=== PATIENT | male | born 2000 | race Caucasian/White ===

== ENCOUNTER 2019-01-20 15:08 | Observation (INO) | payer BC ==
[2019-01-20] MEDS ORDERED: LIDOCAINE 1% 20 ML MDV ONE (16:21)
--- NOTE | 2019-01-20 16:53 | RAD REPORT ---
EXAM DESCRIPTION: RAD -Hand Left 3 View - 01/20/2019 4:35 pm CLINICAL HISTORY: Left hand pain status post injury FINDINGS: No fracture or dislocation is seen. 4 millimeter radiopaque foreign body within the third web space between the third and fourth proximal phalanges
--- NOTE | 2019-01-20 18:08 | RAD REPORT ---
EXAM DESCRIPTION: RAD -Hand Left 3 View - 01/20/2019 5:53 pm CLINICAL HISTORY: Left hand pain status post injury FINDINGS: No fracture or dislocation is seen. Radiopaque foreign body persists within the third webspace between the third and fourth proximal phal anges
--- NOTE | 2019-01-20 18:25 | P.HP ---
Certification for Inpatient Patient admitted to: Observation With expected LOS: <2 Midnights Patient will require the following post-hospital care: None Practitioner: I am a practitioner with admitting privileges, knowledge of patient current condition, hospital course, and medical plan of care. Services: Services provided to patient in accordance with Admission requirements found in Title 42 Section 412.3 of the Code of Federal Regulations Patient History Date of Service: 01/20/19 Primary Care Provider: Dr. Bashir Reason for admission: Laceration to the left hand History of Present Illness: 18-year-old male presented to emergency room after he fell and lacerated his left hand. Patient was fishing. He fell in the water and landed on shellreef. Suffered 2 lacerations to the web of his hand. He did not have any severe pain, fever or chills noted. He went home but decided to come into the hospital to get further evaluated. In the ER he was evaluated. Patient was assessed. Lacerations were irrigated and debrided. X-rays showed a foreign body to the left webspace between the 3rd and 4th proximal phalanges. Plastic surgery was called. Plastic surgery recommended to keep the patient Overnite for debridement of foreign body tomorrow. I was asked to admit the patient. When I saw the patient ER, he appeared comfortable. Patient had been given medication for pain. 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 - Family History Family History: Reviewed- Non-Contributory - Social History Smoking Status: Unknown if ever smoked Alcohol use: No CD- Drugs: No Caffeine use: Yes Place of Residence: Home Review of Systems General: As per HPI Eyes: Unremarkable ENT: Unremarkable Respiratory: Unremarkable Cardiovascular: Unremarkable Gastrointestinal: Unremarkable Genitourinary: Unremarkable Musculoskeletal: As per HPI Integumentary: As per HPI Neurological: Unremarkable Lymphatics: Unremarkable Physical Examination - Physical Exam General: Alert, In no apparent distress, Oriented x3, Cooperative HEENT: Atraumatic, Normocephalic, PERRLA, Mucous membr. moist/pink Neck: Supple, No Thyromegaly Respiratory: Clear to auscultation bilaterally, Normal air movement Cardiovascular: Normal pulses, Regular rate/rhythm Gastrointestinal: Normal bowel sounds, Soft and benign, Non-distended, No tenderness, No masses, No rebound, No guarding Integumentary: Other (Left hand evaluated. 2 lacerations identified. 1 near the web space of the 3rd and 4th proximal phalanx. The other near the base of the palm. Mild edema noted. Patient reports some extension to the hand) Neurological: Normal speech, Normal strength at 5/5 x4 extr, Normal tone, Normal affect Assessment and Plan - Plan Impression: Fall leading to lacerations and foreign body to the webspace of the 3rd and 4th proximal phalanx Plan: Patient will be admitted in preparation for irrigation, debridement and removal of foreign body by plastic surgery tomorrow. Patient patient is low risk for complication. IV antibiotic therapy initiated to cover for broad-spectrum bacteria. Possible discharge tomorrow after surgery. 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 He will likely require work restrictions. This can be it further addressed by plastic surgery. I will turn the service over to Dr. Becerra tomorrow. I will go over the plan of care with her. Discharge Plan: Home Plan to discharge in: 24 Hours - Advance Directives Does patient have a Living Will: No Does patient have a Durable POA for Healthcare: No - Code Status/Comfort Care Code Status Assessed: Yes (Patient full code.) Time Spent Managing Pts Care (In Minutes): 55
--- NOTE | 2019-01-20 18:26 | ER ---
Nurse's Notes [facility] Name: Rayray Gomez Age: 18 yrs Sex: Male : 2000 Arrival Date: 01/20/2019 Time: 15:10 Bed 24 Private MD: Diagnosis: Laceration with foreign body of left hand Presentation: 01/20 15:39 Presenting complaint: Patient states: Laceration to the Left irby aspect on oysters sg in the mud while fishing, pt reports he was able to get it cleaned out and dressed at home, bleeding controlled at this time, concerned about nerve/muscle damage. pt able to move all fingers at this time, reports pain at this time. Transition of care: patient was not received from another setting of care. Complicating Factors: There are no complicating factors for this patient. Onset of symptoms was January 20, 2019. Risk Assessment: Do you want to hurt yourself or someone else? Patient reports no desire to harm self or others. Initial Sepsis Screen: Does the patient meet any 2 criteria? No. Patient's initial sepsis screen is negative. Does the patient have a suspected source of infection? No. Patient's initial sepsis screen is negative. Care prior to arrival: None. 15:39 Method Of Arrival: Ambulatory sg 15:39 Acuity: WALLY 4 sg Historical: - Allergies: 15:41 No Known Allergies; sg - Home Meds: 15:41 None [Active]; sg - PMHx: 15:41 None; sg - PSHx: 15:41 None; sg - Immunization history:: Adult Immunizations up to date. - Social history:: Smoking status: Patient/guardian denies using tobacco. - Ebola Screening: : Patient negative for fever greater than or equal to 101.5 degrees Fahrenheit, and additional compatible Ebola Virus Disease symptoms Patient denies exposure to infectious person Patient denies travel to an Ebola-affected area in the 21 days before illness onset No symptoms or risks identified at this time. Screenin:12 Abuse screen: Denies threats or abuse. Nutritional screening: No deficits noted. la1 Tuberculosis screening: No symptoms or risk factors identified. Fall Risk None identified. Assessment: 16:11 General: Appears in no apparent distress. Behavior is calm, cooperative. Pain: la1 Complains of pain in palm of left hand. Neuro: Level of Consciousness is awake, alert, obeys commands, Oriented to person, place, time, situation. Cardiovascular: Capillary refill < 3 seconds Patient's skin is warm and dry. Respiratory: Airway is patent Respiratory effort is even, unlabored. GI: No signs and/or symptoms were reported involving the gastrointestinal system. : No signs and/or symptoms were reported regarding the genitourinary system. Musculoskeletal: Circulation, motion, and sensation intact. Injury Description: Laceration sustained to palm of left hand is jagged, 2.6 to 7.5 cm long, not bleeding. 18:11 Reassessment: Patient appears in no apparent distress at this time. No changes from la1 previously documented assessment. Patient and/or family updated on plan of care and expected duration. Pain level reassessed. Patient is alert, oriented x 3, equal unlabored respirations, skin warm/dry/pink. Vital Signs: 15:41 BP 120 / 69; Pulse 97; Resp 17; Temp 97.8; Pulse Ox 99% ; Pain 6/10; sg 18:19 BP 134 / 93; Pulse 71; Resp 16; Temp 98.4; Pulse Ox 100% ; lt1 ED Course: 15:10 Patient arrived in ED. ds1 15:39 Arm band placed on. sg 15:41 Triage completed. sg 15:49 Brett Naik PA is PHCP. jmm 15:49 Jj De La O MD is Attending Physician. jmm 15:51 Leonardo Samuel, MICKIE is Primary Nurse. la1 16:12 Call light in reach. la1 16:30 Hand Left 3 View XRAY In Process Unspecified. EDMS 17:53 Hand Left 3 View XRAY In Process Unspecified. EDMS 18:19 Inserted saline lock: 22 gauge in right antecubital area, using aseptic technique. lt1 18:19 Initial lab(s) drawn, by me, sent to lab. lt1 18:25 Alber Dowd DO is Hospitalizing Provider. [facility] 19:54 No provider procedures requiring assistance completed. Patient admitted, IV remains in la1 place. Administered Medications: 16:13 Drug: Lidocaine (1 %) 20 ml Volume: 20 ml; Route: Infiltration; la1 18:59 Drug: LevaQUIN 750 mg Volume: 150 ml; Route: IVPB; Infused Over: 90 mins; Site: right la1 antecubital; 19:54 Follow up: IV Status: Infusion continued upon admission la1 19:34 Drug: vancoMYCIN 1 grams Route: IVPB; Infused Over: 2 hrs; Site: right antecubital; la1 19:54 Follow up: IV Status: Infusion continued upon admission la1 Outcome: 18:25 Decision to Hospitalize by Provider. nazario 19:54 Admitted to Med/surg accompanied by nurse, via wheelchair, with chart. [facility] 19:54 Condition: stable 19:54 Instructed on the need for admit. 20:02 Patient left the ED. rv Signatures: Dispatcher [employer] EDMS Maxi Mcgregor RN RN sg Mickail, Joel, PA PA Yovana Flores ds1 Leonardo Samuel RN RN la1 Frank Sigala RN RN Ayla Dowd [place]
--- NOTE | 2019-01-20 18:26 | EDPHYS ---
Physician Documentation [facility] Name: Rayray Gomez Age: 18 yrs Sex: Male : 2000 Arrival Date: 01/20/2019 Time: 15:10 Bed 24 Private MD: ED Physician Jj De La O HPI: 01/20 15:52 This 18 yrs old Male presents to ER via Ambulatory with complaints of jmm Laceration To Hand. 15:52 Onset: The symptoms/episode began/occurred acutely, just prior to arrival. Associated jmm signs and symptoms: Pertinent negatives: dizziness, heavy bleeding, loss of consciousness. This is a 18 year old male with no chronic medical conditions that presents to the ED with complaints of left hand pain after falling into oyster shells while fishing in [place]. Patient is UTD on immunizations. . Historical: - Allergies: 15:41 No Known Allergies; sg - Home Meds: 15:41 None [Active]; sg - PMHx: 15:41 None; sg - PSHx: 15:41 None; sg - Immunization history:: Adult Immunizations up to date. - Social history:: Smoking status: Patient/guardian denies using tobacco. - Ebola Screening: : Patient negative for fever greater than or equal to 101.5 degrees Fahrenheit, and additional compatible Ebola Virus Disease symptoms Patient denies exposure to infectious person Patient denies travel to an Ebola-affected area in the 21 days before illness onset No symptoms or risks identified at this time. ROS: 15:52 Constitutional: Negative for fever, chills, and weight loss, Cardiovascular: Negative jmm for chest pain, palpitations, and edema, Respiratory: Negative for shortness of breath, cough, wheezing, and pleuritic chest pain. 15:52 MS/extremity: Positive for laceration. 15:52 Skin: Positive for laceration(s). 15:52 All other systems are negative. Exam: 15:52 Constitutional: This is a well developed, well nourished patient who is awake, alert, jmm and in no acute distress. Head/Face: atraumatic. Eyes: EOMI, no conjunctival erythema appreciated ENT: Moist Mucus Membranes Neck: Trachea midline, Supple Chest/axilla: Normal chest wall appearance and motion. Cardiovascular: Regular rate and rhythm. No edema appreciated Respiratory: Normal respirations, no respiratory distress appreciated Abdomen/GI: Non distended, soft Back: Normal ROM 15:52 Skin: 2 2cm lacerations noted to the left hand. No active bleeding appreciated. . 15:52 Neuro: Orientation: is normal, Mentation: is normal, Memory: is normal. 15:52 Psych: Behavior/mood is pleasant, cooperative. Vital Signs: 15:41 BP 120 / 69; Pulse 97; Resp 17; Temp 97.8; Pulse Ox 99% ; Pain 6/10; sg 18:19 BP 134 / 93; Pulse 71; Resp 16; Temp 98.4; Pulse Ox 100% ; lt1 Procedures: 15:52 Performed irrigation. 2 lacerations to the left hand were copiously irrigated with [facility] normal saline and betadine. A small shell fragment was removed from the distal laceration at the left 3rd web space. Patient tolerated the procedure well. . MDM: 15:52 Patient medically screened. [facility] 18:25 Data reviewed: vital signs, nurses notes. Counseling: I had a detailed discussion with [facility] the patient and/or guardian regarding: the historical points, exam findings, and any diagnostic results supporting the discharge/admit diagnosis, radiology results, the need for further work-up and treatment in the hospital. ED course: I discussed the patient with Dr. De Oliveira whom will consult on admission. I discussed the patient with Dr. Dowd whom accepted admission. . 01/20 17:50 Order name: CBC with Diff; Complete Time: 18:52 [facility] 01/20 17:50 Order name: CMP; Complete Time: 18:54 [facility] 01/20 16:04 Order name: Hand Left 3 View XRAY; Complete Time: 16:53 [facility] 01/20 17:07 Order name: Hand Left 3 View XRAY; Complete Time: 18:10 [facility] 01/20 17:50 Order name: Saline Lock; Complete Time: 17:53 [facility] Administered Medications: 16:13 Drug: Lidocaine (1 %) 20 ml Volume: 20 ml; Route: Infiltration; la1 18:59 Drug: LevaQUIN 750 mg Volume: 150 ml; Route: IVPB; Infused Over: 90 mins; Site: right la1 antecubital; 19:54 Follow up: IV Status: Infusion continued upon admission la1 19:34 Drug: vancoMYCIN 1 grams Route: IVPB; Infused Over: 2 hrs; Site: right antecubital; la1 19:54 Follow up: IV Status: Infusion continued upon admission la1 Disposition: 01/21 08:01 Co-signature as Attending Physician, Jj De La O MD I agree with the assessment and josefina plan of care. Disposition: 01/20/19 18:25 Hospitalization ordered by Alber Dowd for Observation. Preliminary diagnosis is Laceration with foreign body of left hand. - Bed requested for Telemetry/MedSurg (observation). - Status is Observation. rv - Condition is Stable. - Problem is new. - Symptoms are unchanged. UTI on Admission? No Signatures: Dispatcher [employer] EDMS Maxi Mcgregor, RN RN Jj Verde MD MD cha Mickail, Joel, PA PA jmm Attema, Lee, RN RN la1 Marimar Abraham RN RN df Frank Sigala RN RN rv Corrections: (The following items were deleted from the chart) 01/20 19:09 18:25 Hospitalization Ordered by Alber Dowd DO for Observation. Preliminary df diagnosis is Laceration with foreign body of left hand. Bed requested for Telemetry/MedSurg (observation). Status is Observation. Condition is Stable. Problem is new. Symptoms are unchanged. UTI on Admission? No. luisa 20:02 19:09 01/20/2019 18:25 Hospitalization Ordered by Alber Dowd DO for Observation. rv Preliminary diagnosis is Laceration with foreign body of left hand. Bed requested for Telemetry/MedSurg (observation). Status is Observation. Condition is Stable. Problem is new. Symptoms are unchanged. UTI on Admission? No. df
[2019-01-20 18:40] LABS: Absolute Lymphocytes (CBC) 1.4 K/uL (0.7-4.9); Absolute Monocytes 0.9 K/uL (0.1-1.3); Absolute Neutrophil 9.2 K/uL (1.8-8.0); Basophils % 0.4 % (0-1.3); Eosinophils % 0.8 % (0-4.4); Lymphocytes % 12.1 % (15.3-44.8); MPV 9.2 fL (7.6-11.3); Monocytes % 7.5 % (3.3-12.3); RBC Red Blood Cell Count 5.17 M/uL (4.33-5.43)
[2019-01-20 18:54] LABS: Bilirubin Total 0.2 mg/dL (0.2-1.0); Potassium 4.1 mmol/L (3.5-5.1); Protein, Total 7.8 g/dL (6.4-8.2)
[2019-01-20] MEDS ORDERED: Levofloxacin 750mg IV 750 MG/150 ML BAG IV ONE (19:06)
[2019-01-20] MEDS ORDERED: VANCOMYCIN 1 GM/VIAL ONE ×2 (19:37→23:14)
[2019-01-20] MEDS ORDERED: NA CHLORIDE 0.9% 250 ML ONE ×2 (19:38→23:18)
[2019-01-20] MEDS ORDERED: TRAMADOL HCL 50 MG TAB PO PRN (19:52)
[2019-01-20] MEDS ORDERED: HYDROCODONE/APAP 7.5/325 MG TAB PO PRN (19:52)
[2019-01-20] MEDS ORDERED: MORPHINE 2 MG/ML SYR IV PRN (19:52)
[2019-01-20] MEDS ORDERED: ONDANSETRON 4 MG/2 ML VIAL IV PRN (19:52)
[2019-01-20] MEDS ORDERED: ACETAMINOPHEN 500 MG TAB PO PRN (19:52)
[2019-01-20] MEDS ORDERED: Levofloxacin500mg IV 500 MG/100 ML BAG IV SCH (19:52)
[2019-01-20] MEDS ORDERED: VANCOMYCIN 750 MG in NA CHLORIDE 0.9% 250 ML IVPB ONE (21:45)
[2019-01-21 05:50] LABS: Absolute Lymphocytes (CBC) 1.8 K/uL (0.7-4.9); Basophils % 0.5 % (0-1.3); Eosinophils % 2.7 % (0-4.4); Hematocrit 44.5 % (39.6-49.0); Lymphocytes % 19.3 % (15.3-44.8); MPV 8.9 fL (7.6-11.3); Monocytes % 11.3 % (3.3-12.3)
[2019-01-21 06:11] LABS: BUN Blood Urea Nitrogen 15 mg/dL (7-18); Bicarbonate 27 mmol/L (21-32); Glucose Level 101 mg/dL (74-106); Sodium Level 144 mmol/L (136-145)
[2019-01-21 07:23] LABS: Urine Appearance CLEAR; Urine Bilirubin NEGATIVE (NEG); Urine Blood NEGATIVE (NEG); Urine Color YELLOW; Urine Glucose NEGATIVE (NEG); Urine Protein NEGATIVE (NEG); Urine Specific Gravity >=1.030 (1.005-1.030); Urine Urobilinogen 0.2 mg/dL (0.2-1.0)
[2019-01-21 07:30] LABS: Urine Microscopic Reflex NO UMIC
[2019-01-21] MEDS ORDERED: VANCOMYCIN 1 GM in NA CHLORIDE 0.9% 500 ML IVPB SCH (09:00)
[2019-01-21] MEDS ORDERED: VANCOMYCIN 1.75 GM in NA CHLORIDE 0.9% 500 ML IVPB SCH (09:00)
[2019-01-21] MEDS ORDERED: Ringers Lactate 1,000 ML IV ONE (09:04)
[2019-01-21] MEDS ORDERED: PROPOFOL 200 MG/20 ML VIAL IV ONE (09:56)
[2019-01-21] MEDS ORDERED: FENTANYL CITR 100 MCG/2 ML ONE (09:56)
[2019-01-21] MEDS ORDERED: LIDOCAINE 2% MPF 5 ML VIAL ONE (09:57)
[2019-01-21] MEDS ORDERED: MIDAZOLAM HCL 2 MG/2 ML INJ ONE (09:57)
[2019-01-21] MEDS ORDERED: ONDANSETRON 4 MG/2 ML VIAL ONE (09:58)
--- NOTE | 2019-01-21 11:03 | RAD REPORT ---
EXAM DESCRIPTION: RAD - Hand Left 3 View - 01/21/2019 10:59 am CLINICAL HISTORY: F/B REMOVAL IN OR1 COMPARISON: Hand Left 3 View dated 01/20/2019; Hand Left 3 View dated 01/20/2019 FINDINGS: Fluoroscopic imaging submitted from a foreign body removal. Details of procedure not avail able. Total fluoro time 0.7 minutes.
[2019-01-21] MEDS: MORPHINE 4 MG/ML SYR ONE ×2 (11:15→11:28)
[2019-01-21] MEDS ORDERED: DIPHENHYDRAMINE 50 MG/ML VIAL ONE (11:53)
--- NOTE | 2019-01-21 17:43 | P.SSS ---
Patient History Date of Service: 01/21/19 Primary Care Provider: Dr. Bashir Reason for admission: Laceration to the left hand History of Present Illness: 18-year-old male presented to emergency room after he fell and lacerated his left hand. Patient was fishing. He fell in the water and landed on shellreef. Suffered 2 lacerations to the web of his hand. He did not have any severe pain, fever or chills noted. He went home but decided to come into the hospital to get further evaluated. In the ER he was evaluated. Patient was assessed. Lacerations were irrigated and debrided. X-rays showed a foreign body to the left webspace between the 3rd and 4th proximal phalanges. Plastic surgery was called. Plastic surgery recommended to keep the patient Overnite for debridement of foreign body tomorrow. I was asked to admit the patient. When I saw the patient ER, he appeared comfortable. Patient had been given medication for pain. 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 moist/pink, EOMI, Sclerae nonicteric Neck: Supple, 2+ carotid pulse no bruit, No LAD, Without JVD or thyroid abnormality Respiratory: Clear to auscultation bilaterally, Normal air movement Cardiovascular: Regular rate/rhythm, Normal S1 S2 Gastrointestinal: Normal bowel sounds, No tenderness Musculoskeletal: No tenderness Integumentary: No rashes Neurological: Normal gait, Normal speech, Normal strength at 5/5 x4 extr, Normal tone, Normal affect Lymphatics: No axilla or inguinal lymphadenopathy - Studies Laboratory Data (last 24 hrs) 01/20/19 18:10: Sodium 141, Potassium 4.1, BUN 17, Creatinine 1.09, Glucose 134 H, Total Bilirubin 0.2, AST 20, ALT 30, Alkaline Phosphatase 84 01/20/19 18:10: WBC 11.6 H, Hgb 15.1, Hct 46.0, Plt Count 241 - Diagnosis (Problem(s)) (1) Foreign body of hand, left Status: Acute Qualifiers: Encounter type: initial encounter Qualified Code(s): S60.552A - Superficial foreign body of left hand, initial encounter Treatment Summary: Overall during the hospital stay patient remained stable Patient was initially admitted to the hospital for foreign body to the left hand. Plastic surgeon was consulted. Patient was taken for incision and drainage. Patient had extensive debridement and foreign body was removed. Patient did well overall during surgery. Patient then was discharged home under stable condition was asked to follow up with plastic surgery outpatient. Patient was also asked to establish care with a primary care provider - Disposition Disposition: ROUTINE DISCHARGE
[2019-01-21] MEDS ORDERED: Levofloxacin500mg IV 500 MG/100 ML BAG IV SCH (19:00)
--- NOTE | 2019-01-21 22:41 | OP ---
Surgeon: yAo De Oliveira MD Preoperative Diagnoses: Foreign body to the left hand and open wound to the left hand. Postoperative Diagnoses: Foreign body to the left hand and open wound to the left hand. Procedures Performed: Debridement of skin and subcutaneous tissue, removal of foreign body. Anesthesia: General. Description Of Procedure: After satisfactory induction of general anesthesia, the left arm was prepp ed with Betadine scrub and Betadine paint. Dry sterile drapes were applied in the usual manner. Arm was elevated and exsanguinated with Esmarch. Tourniquet was inflated to 250 mmHg. Hand was placed on a [place] table. Hemostat was used to get the soft tissue over the web space between the middle a nd ring finger metacarpal heads on the palmar surface. The foreign body was removed. C-arm revealed no foreign body present after conclusion of removal. It was sent to pathology. The skin edges were debrided with scalpel and forceps. Tourniquet was released after a jet lavage and irrigated with 3 L of dilute Betadine solution. Wound was packed with Betadine soaked quarter-inch Nu Gauze, 2-inch K ling, and Kerlix. The patient tolerated the procedure well and returned to recovery. TAD/ERICA Voice ID: [id number] Report ID: [id number]
== END 2019-01-21 16:15 | disposition home or self-care (01) ==
LOC: ER 15:08 → ERHOLD 18:32 → 2ND 19:49
PROVIDERS: ADMIT Family Medicine; ATTEND Family Medicine
PROC: 0JDK3ZZ Extraction of Left Hand Subcutaneous Tissue and Fascia, Percutaneous Approach (ICD-10-PCS; principal; 2019-01-21 10:15)
DX: S61.422A Laceration with foreign body of left hand, initial encounter (principal); W18.39XA Other fall on same level, initial encounter; Y93.89 Activity, other specified; Y92.832 Beach as the place of occurrence of the external cause
CPT/HCPCS: 36415; 80048; 80053; 81003; 83735; 85025; 88300; 88304; 96365; 96368; 99285; G0378; J2250; J2405; J2704; J3010

== ENCOUNTER 2019-01-25 07:49 | Day surgery (SDC) | payer BC ==
[2019-01-25] MEDS ORDERED: CEFAZOLIN/SWI 1gm 1 GM/10 ML SYR ONE (08:02)
[2019-01-25] MEDS ORDERED: Ringers Lactate 1,000 ML IV ONE (08:02)
[2019-01-25] MEDS ORDERED: FENTANYL CITR 100 MCG/2 ML ONE (09:09)
[2019-01-25] MEDS ORDERED: PROPOFOL 200 MG/20 ML VIAL IV ONE (09:09)
[2019-01-25] MEDS ORDERED: LIDOCAINE 1% MPF 5 ML VIAL ONE (09:10)
[2019-01-25] MEDS ORDERED: MIDAZOLAM HCL 2 MG/2 ML INJ ONE (09:10)
[2019-01-25] MEDS ORDERED: ONDANSETRON 4 MG/2 ML VIAL ONE (09:47)
[2019-01-25] MEDS ORDERED: KETOROLAC 30 MG/ML INJ ONE (09:47)
[2019-01-25] MEDS ORDERED: FLUMAZENIL 0.1 MG/ML (5 mL VIAL) IV ONE (10:03)
[2019-01-25] MEDS: HYDROMORPHONE HCL 1 MG/ML INJ ONE ×2 (10:15→10:20)
[2019-01-25] MEDS ORDERED: PROMETHAZINE 25 MG/ML VIAL ONE (10:58)
--- NOTE | 2019-01-25 20:44 | OP ---
Surgeon: Ayo De Oliveira MD Splitter Machine: Jamil. Preoperative Diagnosis: Open wounds of the left hand. Postoperative Diagnosis: Open wounds of the left hand. Procedure Performed: Debridement of skin and subcutaneous tissue, simple closure of 3.5-cm and 2.5-c m wounds. Anesthesia: General. Procedure In Detail: After satisfactory induction of general anesthesia, the left arm was prepped wi th Betadine scrub and Betadine paint. Dry sterile drapes were applied in the usual manner. The arm was elevated and exsanguinated with Esmarch. Tourniquet was inflated to 250 mmHg. Hand was placed o n the [place] table. Curettes, forceps, and tenotomy scissors were used debride skin and subcutaneou s tissue as needed. The wound was jet lavage irrigated with 3 L of dilute Betadine solution. The to urniquet was released. Electrocautery was used for hemostasis. The wound was closed with vertical m attress of 3-0 Prolene. Dressed with Xeroform, 2-inch Earle, and Kerlix. The patient tolerated the procedure well and returned to recovery. TAD/ERICA Voice ID: [id number] Report ID: [id number]
== END 2019-01-25 13:25 | disposition home or self-care (01) ==
LOC: OR 07:49
PROVIDERS: ATTEND Specialist
PROC: 0JQK0ZZ Repair Left Hand Subcutaneous Tissue and Fascia, Open Approach (ICD-10-PCS; principal; 2019-01-25 09:00)
DX: S61.402A Unspecified open wound of left hand, initial encounter (principal); Z88.6 Allergy status to analgesic agent
CPT/HCPCS: J0690; J1170; J2250; J2405; J2550; J2704; J3010

== ENCOUNTER 2021-02-10 04:37 | Emergency (ER) | payer BC ==
--- OUTSIDE RECORDS SUMMARY | 2021-02-10 04:40 | XMS REPORT | Continuity of Care Document ---
:2000 Author Organization [facility] t Address [address] [place] [address] Care Team Providers Name Role Phone Teddy Ruelas MD Attending Clinician ANEL Attending Clinician Unavailable DAMIR Attending Clinician Unavailable Payers Payer Name Policy Type Policy Number Effective Date Expiration Date S ource Problems Condition Condition Condition Status Onset Resolution Last Treating Co mments Source Name Details Category Date Date Treatment Clinician Date Closed Closed Problem Active [facility] nondisplac nondisplac it y of ed ed [place] transverse transverse Ph ysici fracture fracture ans of shaft of shaft of left of left femur, femur, initial initial encounter encounter Allergies, Adverse Reactions, Alerts Allergy Allergy Status Severity Reaction(s) Onset Inactive Treating Comm ents Source Name Type Date Date Clinician [place] DA Active [place] 2019-11 [facility] ins 0-15 [place] 00:[facility]: [facility] [place] DA Active [place] 2019-11 [facility] ins 0-07 [place] 00:00: Vazquez 00 [facility] Medications This patient has no known medications. Procedures This patient has no known procedures. Encounters Start End Encounter Admission Attending Care Care Encounter Source Date/Time Date/Time Type Type Clinicians Facility Department ID 2020-07-28 2020-07-28 [facility] [id number] 15:19:54 23:59:00 Encounter Maxi Love [id number] [place] [id number] [place] [id number] 2020-05-20 2020-05-20 Appointmen MAGY TAM [facility] [id number] Univers 10:00:00 10:00:00 t; [facility] DIRECTORDaisy martinez [place], [place] NEWTON VELAZQUEZ Physic i ans 2020-04-22 2020-04-22 Appointmen MAGY TAM [facility] [id number] [facility] 10:30:00 10:30:00 t; NEWTON VELAZQUEZ [place], [place] NEWTON VELAZQUEZ Physic i ans 2020-03-31 2020-03-31 Appointmen MAGY REICH [facility] [id number] Univers 07:00:00 07:00:00 t; MARYANN RE[facility] [place], M.D. [place] M.D. Physici ans Results Test Description Test Time Test Comments Results Result Comments Source BASIC METABOLIC PANEL 2020-09-11 06:33:00 Test Item Value Reference Range Interpretation Comme nts SODIUM (test code = NA) 137 mmol/L 136-145 N POTASSIUM (test code = K) 4.6 mmol/L 3.5-5.1 N CHLORIDE (test code = CL) 100.0 mmol/L 98-107 N CARBON DIOXIDE (test code = 27.5 mmol/L 21-32 N CO2) GLUCOSE (test code = GLU) 108 mg/dL 70-110 N BLOOD UREA NITROGEN (test code 12 mg/dL 7-18 N = BUN) GLOMERULAR FILTRATION RATE 95.4 >60 U nit of measure: (test code = GFR) mL/min/1.7 3 [id number] Range:Healthy A dults >90 mL/min/1.73 m2 For Chronic Kidney Disease: Stage II Mi ld Decrease in GFR 60-9 0 Stage III Moderate Decrease in GFR 30-59 Stage IV Severe Decrease in GFR 15-29 Stage V Kidney Failure <15 CREATININE (test code = CREAT) 0.99 mg/dL 0.55-1.30 N CALCIUM (test code = CA) 8.8 mg/dL 8.2-10.1 N CBC W/AUTO [id number] 06:01:00 Test Item Value Reference Range Interpretation Comments WHITE BLOOD CELL (test code = 15.0 K/mm3 5.7-10.5 H WBC) RED BLOOD CELL (test code = RBC) 4.90 M/mm3 4.2-5.4 N HEMOGLOBIN (test code = HGB) 14.1 g/dL 12-16 N HEMATOCRIT (test code = HCT) 42.8 % 37-47 N MEAN CELL VOLUME (test code = 87 fL 80-98 N MCV) MEAN CELL HGB (test code = MCH) 28.8 pg 27-34 N MEAN CELL HGB CONCENTRATION (test 32.9 g/dL 30.8-34.1 N code = MCHC) RED CELL DISTRIBUTION WIDTH (test 13.3 % 11-16 N code = RDW) PLT (test code = PLT) 276 K/mm3 130-400 N MEAN PLATELET VOLUME (test code = 10.4 fL 8.9-12.1 N MPV) NEUTROPHIL % (test code = NT%) 87.9 % 45-70 H LYMPHOCYTE % (test code = LY%) 5.5 % 20-40 L MONOCYTE % (test code = MO%) 5.9 % 3-10 N EOSINOPHIL % (test code = EO%) 0.0 % 1-5 L BASOPHIL % (test code = BA%) 0.1 % 0.0-1.1 N NEUTROPHIL # (test code = NT#) 13.23 K/mm3 2.00-7.50 H LYMPHOCYTE # (test code = LY#) 0.82 K/mm3 1.50-4.00 L MONOCYTE # (test code = MO#) 0.88 K/mm3 0.2-0.8 H EOSINOPHIL # (test code = EO#) 0.00 K/mm3 0.04-0.4 L BASOPHIL # (test code = BA#) 0.02 K/mm3 0.02-0.10 N MANUAL DIFF REQUIRED (test code = NO MANUAL DIFF MDIFF) NUCLEATED RED BLOOD CELL (test 0 % 0-0 N code = NRBC) Novel Coronavirus 2018 [id number] 06:45:00 Test Item Value Reference Range Interpretation Comments Novel Coronavirus Negative Negative Positive r esults are 2019 Inhouse (test indicativ e of the presence code = COVNONPUI) ofSARS-CoV -2 RNA, clinical correlation wit h patient historyand othe r diagnostic info rmation is necessary to determinepatien t infection status. Positiv e results do not rule out bacterial infection or co -infection with other viru ses. Negative result s do not preclude SARS-C oV-2 infection andsh ould not be used as the mil e basis for patient managementdecis ions. Negative result s must be combined with otherclinical observations, p atient history, and epidemiological information . Detection of SARS-CoV-2 RNA may be affe cted bysample collec tion methods, storag e conditions, and /or stageof infection. Tania l RNA mutations, vacc inations, antiviraltherap eutics, antibiotics, chemotherapeuti c orimmunosuppres geraldo drugs have not been e valuated for effectson d etection. Results are for the identification of SARS-CoV-2 RNA usingthe Thibodeaux M2000 Sy stem under the [facility] Emergen cy UseAuthorizatio n. The testing is perf ormed by personneltraine d in the procedures for the Thibodeaux M2000 molecular diagnostic SARS-CoV-2 assa y in vitro. Novel Coronavirus 2018 [id number] 06:44:00 Test Item Value Reference Range Interpretation Comments Novel Coronavirus Negative Negative Positive r esults are 2019 Inhouse (test indicativ e of the presence code = COVNONPUI) ofSARS-CoV -2 RNA, clinical correlation wit h patient historyand othe r diagnostic info rmation is necessary to determinepatien t infection status. Positiv e results do not rule out bacterial infection or co -infection with other viru ses. Negative result s do not preclude SARS-C oV-2 infection andsh ould not be used as the mil e basis for patient managementdecis ions. Negative result s must be combined with otherclinical observations, p atient history, and epidemiological information . Detection of SARS-CoV-2 RNA may be affe cted bysample collec tion methods, storag e conditions, and /or stageof infection. Tania l RNA mutations, vacc inations, antiviraltherap eutics, antibiotics, chemotherapeuti c orimmunosuppres geraldo drugs have not been e valuated for effectson d etection. Results are for the identification of SARS-CoV-2 RNA usingthe Thibodeaux M2000 Sy stem under the FDA Emergen cy UseAuthorizatio n. The testing is perf ormed by personneltraine d in the procedures for the Th[employer]odeaux M2000 molecular diagnostic SARS-CoV-2 assa y in vitro. CBC W/AUTO [id number] 22:42:00 Test Item Value Reference Range Interpretation Comments WHITE BLOOD CELL (test code = WBC) 7.5 K/mm3 5.7-10.5 N RED BLOOD CELL (test code = RBC) 5.57 M/mm3 4.2-5.4 H HEMOGLOBIN (test code = HGB) 15.7 g/dL 12-16 N HEMATOCRIT (test code = HCT) 48.7 % 37-47 H MEAN CELL VOLUME (test code = MCV) 87 fL 80-98 N MEAN CELL HGB (test code = MCH) 28.2 pg 27-34 N MEAN CELL HGB CONCENTRATION (test 32.2 g/dL 30.8-34.1 N code = MCHC) RED CELL DISTRIBUTION WIDTH (test 13.8 % 11-16 N code = RDW) PLT (test code = PLT) 272 K/mm3 130-400 N MEAN PLATELET VOLUME (test code = 10.5 fL 8.9-12.1 N MPV) NEUTROPHIL % (test code = NT%) 74.2 % 45-70 H LYMPHOCYTE % (test code = LY%) 17.6 % 20-40 L MONOCYTE % (test code = MO%) 5.5 % 3-10 N EOSINOPHIL % (test code = EO%) 1.6 % 1-5 N BASOPHIL % (test code = BA%) 0.7 % 0.0-1.1 N NEUTROPHIL # (test code = NT#) 5.57 K/mm3 2.00-7.50 N LYMPHOCYTE # (test code = LY#) 1.32 K/mm3 1.50-4.00 L MONOCYTE # (test code = MO#) 0.41 K/mm3 0.2-0.8 N EOSINOPHIL # (test code = EO#) 0.12 K/mm3 0.04-0.4 N BASOPHIL # (test code = BA#) 0.05 K/mm3 0.02-0.10 N MANUAL DIFF REQUIRED (test code = NO MANUAL DIFF MDIFF) NUCLEATED RED BLOOD CELL (test 0 % 0-0 N code = NRBC) SED [id number] 22:42:00 Test Item Value Reference Range Interpretation Comments SED RATE (test code = SEDW) 10 mm/hr 0-15 N C REACTIVE [id number] 21:28:00 Test Item Value Reference Range Interpretation Comments C REACTIVE PROTEIN (test code = < 0.2 mg/dL <0.9 CRP) ACUTE HEPATITIS [id number] 21:28:00 Test Item Value Reference Range Interpretation Comments AB HEPATITIS A IGM (test code = NONREACTIVE NONREACTIVE HAVMAB) AG HEPATITIS B SURFACE (test code NONREACTIVE NONREACTIVE = HBSAG) AB HEPATITIS B CORE IGM (test NONREACTIVE NONREACTIVE code = HBCMAB) AB HEPATITIS C (test code = NONREACTIVE NONREACTIVE HCVAB) SIGNAL TO CUTOFF (test code = 0.07 <0.80 CUTOFF) AB HIV 21:28:00 Test Item Value Reference Range Interpretation Comments AB HIV 1 (test code NONREACTIVE NONREACTIVE Done by [employer] = HIV1AB) 4th Gen HIV Ag/ Ab Combo Screen PROTHROMBIN [id number] 21:28:00 Test Item Value Reference Range Interpretation Comments PROTHROMBIN TIME 12.2 secs 10.1-12.5 N PATIENT (test code = PTP) INTERNATIONAL NORMAL 1.09 <2.0 RECOMME NDED THERAPEUTIC RATIO (test code = RANGE FOR ORAL INR) ANTICOAGULANTTR EATMENT: CONDI TION INRProphylaxis of venous thrombos is in 2.0 - 3.0 high-risk medic al or surgical patientsTreatme nt of venous thrombos is 2.0 - 3.0Prevention o f embolism 2.0 - 3.0Prevention o f recurrent embol ism, or 3.0 - 4. 5 patients with mechanical pros thetic intravascular v armstrong IS PATIENT ON ANTICOAGULANTS ? [facility] been notified if Patient is on Heparin Drip? NOTHROMBOPLASTIN TIME [id number] 21:28:00 Test Item Value Reference Range Interpretation Comments PTT ACTIVATED (test code = APTT) 32.5 secs 24.9-37.0 N IS PATIENT ON ANTICOAGULANTS ? [facility] been notified if Patient is on Heparin Drip? NOACUTE HEPATITIS [id number] 21:27:00 Test Item Value Reference Range Interpretation Comments AB HEPATITIS A IGM (test code = NONREACTIVE NONREACTIVE HAVMAB) AG HEPATITIS B SURFACE (test code NONREACTIVE NONREACTIVE = HBSAG) AB HEPATITIS B CORE IGM (test NONREACTIVE NONREACTIVE code = HBCMAB) AB HEPATITIS C (test code = NONREACTIVE NONREACTIVE HCVAB) SIGNAL TO CUTOFF (test code = 0.07 <0.80 N CUTOFF) AB HIV 1 21:27:00 Test Item Value Reference Range Interpretation Comments AB HIV 1 2 (test NONREACTIVE NONREACTIVE Done by Rafia Barcenas code = [id number]) 4th Gen HIV Ag/Ab Combo Screen C REACTIVE [id number] 21:04:00 Test Item Value Reference Range Interpretation Comments C REACTIVE PROTEIN (test code = < 0.2 mg/dL <0.9 CRP) ACUTE HEPATITIS [id number] 21:04:00 Test Item Value Reference Range Interpretation Comments AB HEPATITIS A IGM (test code = NONREACTIVE HAVMAB) AG HEPATITIS B SURFACE (test code NONREACTIVE NONREACTIVE = HBSAG) AB HEPATITIS B CORE IGM (test code = HBCMAB) AB HEPATITIS C (test code = NONREACTIVE HCVAB) SIGNAL TO CUTOFF (test code = CUTOFF) AB HIV 21:04:00 Test Item Value Reference Range Interpretation Comments AB HIV 1 (test code = HIV1AB) NONREACTIVE ACUTE HEPATITIS [id number] 21:03:00 Test Item Value Reference Range Interpretation Comments AB HEPATITIS A IGM (test code = NONREACTIVE HAVMAB) AG HEPATITIS B SURFACE (test code NONREACTIVE NONREACTIVE = HBSAG) AB HEPATITIS B CORE IGM (test NONREACTIVE code = HBCMAB) AB HEPATITIS C (test code = NONREACTIVE HCVAB) SIGNAL TO CUTOFF (test code = <0.80 CUTOFF) AB HIV 1 21:03:00 Test Item Value Reference Range Interpretation Comments AB HIV 1 2 (test code = [id number]) NONREACTIVE AB HIV 20:24:00 Test Item Value Reference Range Interpretation Comments AB HIV 1 (test code = HIV1AB) NONREACTIVE C REACTIVE [id number] 20:24:00 Test Item Value Reference Range Interpretation Comments C REACTIVE PROTEIN (test code = < 0.2 mg/dL <0.9 CRP) ACUTE HEPATITIS [id number] 20:24:00 Test Item Value Reference Range Interpretation Comments AB HEPATITIS A IGM (test code = HAVMAB) NONREACTIVE AG HEPATITIS B SURFACE (test code = NONREACTIVE HBSAG) AB HEPATITIS B CORE IGM (test code = HBCMAB) AB HEPATITIS C (test code = HCVAB) NONREACTIVE SIGNAL TO CUTOFF (test code = CUTOFF) COMPREHENSIVE METABOLIC [id number] 20:23:00 Test Item Value Reference Range Interpretation Comments SODIUM (test code = 140 mmol/L 136-145 N NA) POTASSIUM (test code = 4.0 mmol/L 3.5-5.1 N K) CHLORIDE (test code = 102.0 mmol/L 98-107 N CL) CARBON DIOXIDE (test 26.8 mmol/L 21-32 N code = CO2) GLUCOSE (test code = 116 mg/dL 70-110 H GLU) BLOOD UREA NITROGEN 11 mg/dL 7-18 N (test code = BUN) GLOMERULAR FILTRATION 96.5 >60 Unit o f measure: RATE (test code = GFR) mL/mi n/1.73 [id number] Range:Healthy Adults >90 mL/min/1.73 m2 For Chronic Kidney Disease: St age II Mild Decrease in GFR 60-90 St age III Moderate Decrease in GFR 30-59 Stage IV Severe Decre ase in GFR 15- 29 Stage V Kidney Failure <15 CREATININE (test code 0.98 mg/dL 0.55-1.30 N = CREAT) TOTAL PROTEIN (test 7.8 g/dL 6.4-8.2 N code = PROT) ALBUMIN (test code = 3.8 g/dL 3.4-5.0 N ALB) GLOBULIN (test code = 4.0 g/dL 2.2-4.2 N GLOB) ALBUMIN/GLOBULIN RATIO 1.0 0.7-2.0 N (test code = A/G) CALCIUM (test code = 9.2 mg/dL 8.2-10.1 N CA) BILIRUBIN TOTAL (test 0.40 mg/dL 0.2-1.00 N code = BILT) SGOT/AST (test code = 18.0 U/L 15-37 N AST) SGPT/ALT (test code = 31.0 U/L 12-78 N Please note new ALT) normal range. ALKALINE PHOSPHATASE 129 U/L 46-116 H TOTAL (test code = ALKP) CBC W/AUTO [id number] 20:00:00 Test Item Value Reference Range Interpretation Comments WHITE BLOOD CELL (test code = WBC) 7.5 K/mm3 5.7-10.5 N RED BLOOD CELL (test code = RBC) 5.57 M/mm3 4.2-5.4 H HEMOGLOBIN (test code = HGB) 15.7 g/dL 12-16 N HEMATOCRIT (test code = HCT) 48.7 % 37-47 H MEAN CELL VOLUME (test code = MCV) 87 fL 80-98 N MEAN CELL HGB (test code = MCH) 28.2 pg 27-34 N MEAN CELL HGB CONCENTRATION (test 32.2 g/dL 30.8-34.1 N code = MCHC) RED CELL DISTRIBUTION WIDTH (test 13.8 % 11-16 N code = RDW) PLT (test code = PLT) 272 K/mm3 130-400 N MEAN PLATELET VOLUME (test code = 10.5 fL 8.9-12.1 N MPV) NEUTROPHIL % (test code = NT%) 74.2 % 45-70 H LYMPHOCYTE % (test code = LY%) 17.6 % 20-40 L MONOCYTE % (test code = MO%) 5.5 % 3-10 N EOSINOPHIL % (test code = EO%) 1.6 % 1-5 N BASOPHIL % (test code = BA%) 0.7 % 0.0-1.1 N NEUTROPHIL # (test code = NT#) 5.57 K/mm3 2.00-7.50 N LYMPHOCYTE # (test code = LY#) 1.32 K/mm3 1.50-4.00 L MONOCYTE # (test code = MO#) 0.41 K/mm3 0.2-0.8 N EOSINOPHIL # (test code = EO#) 0.12 K/mm3 0.04-0.4 N BASOPHIL # (test code = BA#) 0.05 K/mm3 0.02-0.10 N MANUAL DIFF REQUIRED (test code = NO MANUAL DIFF MDIFF) NUCLEATED RED BLOOD CELL (test 0 % 0-0 N code = NRBC) SED [id number] 20:00:00 Test Item Value Reference Range Interpretation Comments SED RATE (test code = SEDW) mm/hr 0-15 [U] XRAY FEMUR 2 VWS LEFT [id number] 10:15:00Images acquired, not reported on this accession number.[facility]
[2021-02-10 05:24] LABS: Absolute Lymphocytes (CBC) 2.4 K/uL (0.7-4.9); Basophils % 0.8 % (0-1.3); Hematocrit 44.9 % (39.6-49.0); Lymphocytes % 27.1 % (15.3-44.8); MPV 8.9 fL (7.6-11.3); RBC Red Blood Cell Count 5.22 M/uL (4.33-5.43)
[2021-02-10 05:50] LABS: ALT/SGPT 35 U/L (12-78); AST/SGOT 23 U/L (15-37); Albumin 3.9 g/dL (3.4-5.0); Alkaline Phosphatase 107 U/L (45-117); BUN Blood Urea Nitrogen 15 mg/dL (7-18); Bicarbonate 25 mmol/L (21-32); Bilirubin Direct < 0.1 mg/dL (0-0.2); Bilirubin Total 0.4 mg/dL (0.2-1.0); Glucose Level 84 mg/dL (74-106); Magnesium 2.3 mg/dL (1.8-2.4); NT PRO-BNP 11 pg/mL (<125); Potassium 3.9 mmol/L (3.5-5.1); Protein, Total 8.1 g/dL (6.4-8.2); Sodium Level 140 mmol/L (136-145); Troponin (Emerg Dept Use Only) < 0.02 ng/mL (0.0-0.045)
--- NOTE | 2021-02-10 06:29 | EDPHYS ---
Physician Documentation [facility] Name: Rayray Gomez Age: 20 yrs Sex: Male : 2000 Arrival Date: 02/10/2021 Time: 04:38 Bed 4 Private MD: ED Physician Jj De La O HPI: 02/10 05:26 This 20 yrs old Male presents to ER via Ambulatory with complaints of Chest josefina Pain, High Blood Pressure. 05:26 The patient or guardian reports chest pain that is located primarily in the substernal josefina area. The pain does not radiate. Associated signs and symptoms: The patient has no apparent associated signs or symptoms. The chest pain is described as a pressure. Duration: The patient or guardian reports multiple episodes, that have now resolved. Severity of pain: At its worst the pain was mild in the emergency department the pain is unchanged. The patient has not experienced similar symptoms in the past. Historical: - Allergies: 04:59 Morphine; sg - PMHx: 04:59 None; sg - PSHx: 04:59 None; sg - Immunization history:: Adult Immunizations up to date. - Social history:: Smoking status: Patient denies any tobacco usage or history of. - Family history:: not pertinent. ROS: 05:26 Constitutional: Negative for fever, chills, and weight loss, Eyes: Negative for injury, josefina pain, redness, and discharge, ENT: Negative for injury, pain, and discharge, Neck: Negative for injury, pain, and swelling, Cardiovascular: Negative for chest pain, palpitations, and edema, Respiratory: Negative for shortness of breath, cough, wheezing, and pleuritic chest pain, Abdomen/GI: Negative for abdominal pain, nausea, vomiting, diarrhea, and constipation, Back: Negative for injury and pain, : Negative for injury, bleeding, discharge, and swelling, MS/Extremity: Negative for injury and deformity, Skin: Negative for injury, rash, and discoloration, Neuro: Negative for headache, weakness, numbness, tingling, and seizure, Psych: Negative for depression, anxiety, suicide ideation, homicidal ideation, and hallucinations, Allergy/Immunology: Negative for hives, rash, and allergies, Endocrine: Negative for neck swelling, polydipsia, polyuria, polyphagia, and marked weight changes, Hematologic/Lymphatic: Negative for swollen nodes, abnormal bleeding, and unusual bruising. Exam: 05:26 Constitutional: This is a well developed, well nourished patient who is awake, alert, josefina and in no acute distress. Head/Face: Normocephalic, atraumatic. Eyes: Pupils equal round and reactive to light, extra-ocular motions intact. Lids and lashes normal. Conjunctiva and sclera are non-icteric and not injected. Cornea within normal limits. Periorbital areas with no swelling, redness, or edema. ENT: Nares patent. No nasal discharge, no septal abnormalities noted. Tympanic membranes are normal and external auditory canals are clear. Oropharynx with no redness, swelling, or masses, exudates, or evidence of obstruction, uvula midline. Mucous membranes moist. Neck: Trachea midline, no thyromegaly or masses palpated, and no cervical lymphadenopathy. Supple, full range of motion without nuchal rigidity, or vertebral point tenderness. No Meningismus. Chest/axilla: Normal chest wall appearance and motion. Nontender with no deformity. No lesions are appreciated. Cardiovascular: Regular rate and rhythm with a normal S1 and S2. No gallops, murmurs, or rubs. Normal PMI, no JVD. No pulse deficits. Respiratory: Lungs have equal breath sounds bilaterally, clear to auscultation and percussion. No rales, rhonchi or wheezes noted. No increased work of breathing, no retractions or nasal flaring. Abdomen/GI: Soft, non-tender, with normal bowel sounds. No distension or tympany. No guarding or rebound. No evidence of tenderness throughout. Back: No spinal tenderness. No costovertebral tenderness. Full range of motion. Male : Normal genitalia with no discharge or lesions. Skin: Warm, dry with normal turgor. Normal color with no rashes, no lesions, and no evidence of cellulitis. MS/ Extremity: Pulses equal, no cyanosis. Neurovascular intact. Full, normal range of motion. Neuro: Awake and alert, GCS 15, oriented to person, place, time, and situation. Cranial nerves II-XII grossly intact. Motor strength 5/5 in all extremities. Sensory grossly intact. Cerebellar exam normal. Normal gait. Psych: Awake, alert, with orientation to person, place and time. Behavior, mood, and affect are within normal limits. 05:26 Musculoskeletal/extremity: DVT Exam: No signs of deep vein thrombosis. no pain, no swelling, no tenderness, negative Homans' sign noted on exam, no appreciated bluish discoloration, no erythema, no increased warmth. 06:32 ECG was reviewed by the Attending Physician. [facility] Vital Signs: 05:00 BP 122 / 87; Pulse 80; Resp 17; Temp 98.2; Pulse Ox 99% ; ea 06:30 BP 122 / 87; Pulse 58; Resp 18; Pulse Ox 99% on R/A; ea MDM: 04:55 Patient medically screened. [facility] 05:28 Differential diagnosis: abnormal EKG, coronary artery disease Cholelithiasis hiatal josefina hernia, myocarditis, pancreatitis, peptic ulcer disease, pneumonia, pulmonary embolus, stable angina, unstable angina. HEART Score: ECG: Normal (0), Age: < or = 45 years (0), Risk Factors: No Risk Factors Known (0), Troponin: < or = 1 x Normal Limit (0), Total Score = 0. The patient's deep vein thrombosis risk score was calculated as follows: Total Score: 0. This patient was found to be at low risk for a deep vein thrombosis by using the Well's assessment criteria. The patient's pulmonary embolism risk score was calculated as follows: Total Score: 0-2 points. This patient was found to be at low risk for a pulmonary embolism by using the Well's assessment criteria. AHSAN Risk Score: TOTAL SCORE = 0. Data reviewed: vital signs, nurses notes, lab test result(s), EKG, radiologic studies, plain films. 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 Test interpretation: by ED physician or midlevel provider: ECG, plain radiologic studies. Counseling: I had a detailed discussion with the patient and/or guardian regarding: the historical points, exam findings, and any diagnostic results supporting the discharge/admit diagnosis, lab results, radiology results, the need for outpatient follow up, for definitive care, a executive community planning, a family practitioner. 02/10 04:56 Order name: Basic Metabolic Panel [facility] 02/10 04:56 Order name: CBC with Diff [facility] 02/10 04:56 Order name: LFT's [facility] 02/10 04:56 Order name: Magnesium 02/10 04:56 Order name: NT PRO-BNP; Complete Time: 06:25 [facility] 02/10 04:56 Order name: PT-INR; Complete Time: 06:25 02/10 04:56 Order name: Troponin (emerg Dept Use Only); Complete Time: 06:25 josefina 02/10 04:57 Order name: Basic Metabolic Panel; Complete Time: 06:25 EDMS 02/10 04:57 Order name: CBC with Automated Diff; Complete Time: 06:25 EDMS 02/10 04:57 Order name: Liver (Hepatic) Function; Complete Time: 06:25 EDMS 02/10 04:57 Order name: Magnesium; Complete Time: 06:25 EDMS 02/10 05:25 Order name: D-Dimer 02/10 04:56 Order name: XRAY Chest (1 view) 02/10 04:56 Order name: EKG; Complete Time: 04:57 02/10 04:56 Order name: Cardiac monitoring; Complete Time: 06:02 02/10 04:56 Order name: EKG - Nurse/Tech; Complete Time: 06:02 02/10 04:56 Order name: IV Saline Lock; Complete Time: 05:25 02/10 04:56 Order name: Labs collected and sent; Complete Time: 05:25 02/10 04:56 Order name: O2 Per Protocol; Complete Time: 05:25 02/10 04:56 Order name: O2 Sat Monitoring; Complete Time: 05:26 [facility] 02/10 05:28 Order name: D-Dimer; Complete Time: 06:25 EDMS EC:32 Rate is 67 beats/min. Rhythm is regular. QRS [place] is Normal. [place] interval is normal. QRS josefina interval is normal. QT interval is normal. No Q waves. T waves are Normal. No ST changes noted. Clinical impression: NSR w/ Non-specific ST/T Changes and No evidence of ischemia. Interpreted by me. Reviewed by me. Administered Medications: 06:18 Drug: Aspirin Chewable Tablet 162 mg Route: PO; em 06:39 Follow up: Response: No adverse reaction ea 06:39 Drug: ToPROL XL 25 mg Route: PO; ea 06:40 Follow up: Response: Medication administered at discharge. ea Disposition: 02/10/21 06:28 Discharged to Home. Impression: Chest pain, unspecified, Essential (primary) hypertension. - Condition is Stable. - Discharge Instructions: Nonspecific Chest Pain, Hypertension, Nonspecific Chest Pain, [id number], Hypertension, Vchp-bh-[id number], How to Take Your Blood Pressure, Ghqk-yy-Jilh, Aspirin and Your Heart, Managing Your Hypertension. - Prescriptions for Toprol XL 25 mg Oral Tablet - take 1 tablet by ORAL route once daily; 20 tablet. - Medication Reconciliation Form, Thank You Letter, Antibiotic Education, Prescription Opioid Use form. - Follow up: Private Physician; When: 2 - 3 days; Reason: Recheck today's complaints, Continuance of care, Re-evaluation by your physician. Follow up: Mayur Juarez MD; When: 2 - 3 days; Reason: Recheck today's complaints, Re-evaluation by your physician. - Problem is new. - Symptoms have improved. Signatures: Dispatcher [employer] [facility] Maxi Mcgregor RN RN sg Anderson, Corey, MD MD cha Munoz, Edgar RN Comfort Vasquez RN RN ea Corrections: (The following items were deleted from the chart) 05:28 05:26 D-Dimer ordered. [facility] EDMS 06:42 06:28 02/10/2021 06:28 Discharged to Home. Impression: Chest pain, unspecified; ea Essential (primary) hypertension. Condition is Stable. Forms are Medication Reconciliation Form, Thank You Letter, Antibiotic Education, Prescription Opioid Use. Follow up: Private Physician; When: 2 - 3 days; Reason: Recheck today's complaints, Continuance of care, Re-evaluation by your physician. Follow up: Mayur Juarez; When: 2 - 3 days; Reason: Recheck today's complaints, Re-evaluation by your physician. Problem is new. Symptoms have improved. josefina
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
[2021-02-10] MEDS ORDERED: ASPIRIN 81 MG CHEWABLE TABLET ONE (06:33)
[2021-02-10 06:50] VITALS: BP 122/87; TEMP 98.2; O2SAT 99
[2021-02-10] MEDS ORDERED: METOPROLOL XL 50 MG TAB PO ONE (06:51)
--- NOTE | 2021-02-10 07:20 | RAD REPORT ---
EXAM DESCRIPTION: David Single View02/10/2021 5:33 am CLINICAL HISTORY: Chest pain COMPARISON: none FINDINGS: The lungs appear clear of acute infiltrate. The heart is normal size. Upper lobe vessels are prominent which may indicate pulmonary venous hypertension
== END 2021-02-10 06:42 | disposition home or self-care (01) ==
LOC: ER 04:37
DX: R07.9 Chest pain, unspecified (principal); I10 Essential (primary) hypertension
CPT/HCPCS: 36415; 71045; 80048; 80076; 83735; 83880; 84484; 85025; 85379; 85610; 93005; 99285